=== PATIENT | female | born 1990 | race Caucasian/White ===

== ENCOUNTER 2017-08-15 19:11 | Emergency (ER) | payer OTHER ==
[~2017-08-15] VITALS: Ht 172.7 cm; Wt 74.8 kg
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
[2017-08-15] MEDS ORDERED: LORAZEPAM 1 MG TABLET ONE ×2 (20:14→20:20)
[2017-08-15] MEDS ORDERED: OLANZAPINE 5 MG TABLET ONE (20:14)
[2017-08-15 20:30] LABS: APPEARANCE,URINE Slightly Cloudy (CLEAR); BILIRUBIN,URINE MODERATE (NEGATIVE); BLOOD, URINE Large Ery/uL (NEGATIVE); COLOR,URINE Dark (YELLOW); KETONES,URINE 15 (NEGATIVE); LEUKOCYTE ESTERASE ,URINE Negative (NEGATIVE); NITRITE, URINE Negative (NEGATIVE); PROTEIN,URINE 100 mg/dl (NEGATIVE); UGLUCOSE Negative (NEGATIVE)
[2017-08-15] MEDS ORDERED: OLANZAPINE 5 MG TABLET PO ONE (20:30)
[2017-08-15] MEDS ORDERED: LORAZEPAM 1 MG TABLET PO ONE ×2 (20:30)
[2017-08-15 20:46] LABS: BASOPHILS # (AUTO) 0.1 /CMM (0.0-0.2); BASOPHILS % (AUTO) 1.7 % (0.0-2.0); EOSINOPHILS % (AUTO) 0.4 % (0.0-6.0); HEMATOCRIT 38 % (33-45); LYMPHOCYTES # (AUTO) 1.7 /CMM (0.8-4.8); MEAN CORPUSCULAR HEMOGLOBIN 29 PG (26.0-33.0); MEAN CORPUSCULAR HGB CONC 34 g/dl (31.0-36.0); MEAN CORPUSCULAR VOLUME 85 fL (82-100); MONOCYTES # (AUTO) 0.6 /CMM (0.1-1.30); MONOCYTES % (AUTO) 8.7 % (2.0-12.0); NEUTROPHILS # (AUTO) 4.7 /CMM (1.8-8.9); NEUTROPHILS % (AUTO) 65.2 % (43.0-81.0); PLATELET COUNT (AUTO) 437 /CMM (150-450); RDW COEFFICIENT OF VARIATION 12.7 (11.5-15.0); RED BLOOD CELL COUNT(AUTO) 4.47 MIL/uL (4.0-5.2); WHITE BLOOD COUNT (AUTO) 7.1 K/uL (4.3-11.0)
[2017-08-15 20:57] LABS: CALCIUM, SERUM 9.5 mg/dL (8.5-10.1); CARBON DIOXIDE 26 mmol/L (21-32); CHLORIDE 107 mmol/L (98-107); CREATININE 0.9 mg/dL (0.6-1.3); GLUCOSE 77 mg/dL (74-106); POTASSIUM 3.8 mmol/L (3.5-5.1); SODIUM SERUM 142 mmol/L (136-145); UREA NITROGEN, BLOOD 18 mg/dL (7-18)
[2017-08-15 21:02] LABS: ALANINE AMINOTRANSFERASE 45 U/L (12-78); ALKALINE PHOSPHATASE 83 U/L (46-116); ASPARTATE AMINOTRANSFERASE 21 U/L (15-37); BILIRUBIN,TOTAL 0.4 mg/dL (0.2-1.0); TOTAL PROTEIN, SERUM 7.6 g/dL (6.4-8.2)
[2017-08-15 21:09] LABS: ACETAMINOPHEN 0 ug/ml (10-30); ALCOHOL, BLOOD < 3 mg/dL (0-0); SALICYLATE 1.8 mg/dL (2.8-20.0)
--- NOTE | 2017-08-15 21:11 | NUR ---
TALKING TO FAMILY. NAD NOTED.
[2017-08-15 21:25] LABS: BACTERIA,URINE 1+ /HPF (None Seen); SQUAMOUS EPITHELIAL CELL,UR Moderate /HPF (None Seen)
[2017-08-15 21:26] LABS: MUCUS,URINE Few /LPF (None Seen); URINE AMORPHOUS URATE Few /HPF (None Seen)
[2017-08-15] MEDS ORDERED: CEPHALEXIN MONOHYDRATE 500 MG CAPSULE PO ONE ×2 (22:00→22:05)
--- NOTE | 2017-08-15 22:24 | NUR ---
CALLED ART FOR PSYCH EVAL.
--- NOTE | 2017-08-15 22:40 | NUR ---
GIVEN SANDWICH AND JUICE.
[2017-08-15] MEDS ORDERED: TDAP [DIPH/PERTUSSIS/TET] 0.5 ML VIAL IM ONE (23:00)
--- NOTE | 2017-08-15 23:30 | NUR ---
art/manager highway at bedside
--- NOTE | 2017-08-16 00:37 | NUR ---
PER ART/ELECTRONIC [employer] TECHNICAL "PT CAN STAY HERE ALL NIGHT AND WILL BE DISCHARGED IN THE MORNING". DENIES SI/HI OR ANY OTHER ACUTE SX'S.
--- NOTE | 2017-08-16 01:07 | NUR ---
ON CELL PHONE. DENIES ANY SX'S.
--- NOTE | 2017-08-16 02:32 | NUR ---
RESTING WITH EYES CLOSED; NO S/S OF DISTRESS. RESP EVEN AND UNLABORED.
--- NOTE | 2017-08-16 03:59 | NUR ---
REMAINS RESTING WITH NO S/S OF DISTRESS. RESP EVEN AND UNLABORED.
--- NOTE | 2017-08-16 05:10 | NUR ---
Patient is resting comfortably in bed with eyes closed. Easily aroused. VSS
--- NOTE | 2017-08-16 07:26 | NUR ---
Patient discharged to home in stable condition. Written and verbal after care instructions given. Patient verbalizes understanding of instruction. Denies SI/HI. AAox3, ambulates out of ER with steady gait. Provided food tray and called [employer] senior associate for referral.
[2017-08-16 07:28] VITALS: BP 133/80
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
== END 2017-08-16 07:29 | disposition home or self-care (01) ==
LOC: ER 19:13
DX: R45.851 Suicidal ideations (principal); N39.0 Urinary tract infection, site not specified; F20.9 Schizophrenia, unspecified; Z88.8 Allergy status to other drugs, medicaments and biological substances; F17.200 Nicotine dependence, unspecified, uncomplicated
CPT/HCPCS: 36415; 74021; 80048-TC; 80076-TC; 80305; 81000-TC; 84703-TC; 85025-TC; 87086-TC; A4606; G0480; Z7610

== ENCOUNTER 2019-08-11 22:29 | Emergency (ER) | payer MEDICARE, OTHER ==
[~2019-08-11] VITALS: Ht 172.7 cm; Wt 113.9 kg
--- NOTE | 2019-08-11 22:48 | NUR ---
PT LINDA 62 FOUND ON [employer] [address] [employer] [facility] FOR SI AND PLAN "TO RUN INTO TRAFFIC." PLACED IN BED 15. PLACED IN GOWN, BELONINGS PLACED IN LOCKER. AWAITING MD ORDERS.
--- NOTE | 2019-08-11 23:18 | NUR ---
DESIGN VERIFICATION ENGINEER AT BEDSIDE
[2019-08-11 23:25] LABS: BASOPHILS % (AUTO) 0.6 % (0.0-2.0); EOSINOPHILS % (AUTO) 0.6 % (0.0-6.0); HEMATOCRIT 36 % (33-45); LYMPHOCYTES # (AUTO) 2.3 /CMM (0.8-4.8); LYMPHOCYTES % (AUTO) 30.6 % (20.0-44.0); MEAN CORPUSCULAR HGB CONC 33 g/dl (31.0-36.0); MEAN CORPUSCULAR VOLUME 90 fL (82-100); MONOCYTES # (AUTO) 0.6 /CMM (0.1-1.30); MONOCYTES % (AUTO) 8.8 % (2.0-12.0); NEUTROPHILS # (AUTO) 4.4 /CMM (1.8-8.9); NEUTROPHILS % (AUTO) 59.4 % (43.0-81.0); PLATELET COUNT (AUTO) 323 /CMM (150-450); RED BLOOD CELL COUNT(AUTO) 4.03 MIL/uL (4.0-5.2); WHITE BLOOD COUNT (AUTO) 7.4 K/uL (4.3-11.0)
[2019-08-11 23:34] LABS: CALCIUM, SERUM 8.9 mg/dL (8.5-10.1); CARBON DIOXIDE 31 mmol/L (21-32); CHLORIDE 106 mmol/L (98-107); CREATININE 0.8 mg/dL (0.6-1.3); GLUCOSE 91 mg/dL (74-106); POTASSIUM 3.8 mmol/L (3.5-5.1); SODIUM SERUM 144 mmol/L (136-145); UREA NITROGEN, BLOOD 15 mg/dL (7-18)
[2019-08-11 23:46] LABS: ALANINE AMINOTRANSFERASE 63 U/L (12-78); ALBUMIN 3.2 g/dL (3.4-5.0); ALCOHOL, BLOOD < 3 mg/dL (0-0); ALKALINE PHOSPHATASE 105 U/L (46-116); ASPARTATE AMINOTRANSFERASE 23 U/L (15-37); BILIRUBIN,TOTAL 0.1 mg/dL (0.2-1.0); TOTAL PROTEIN, SERUM 6.7 g/dL (6.4-8.2)
[2019-08-11 23:47] LABS: ACETAMINOPHEN 0 ug/ml (10-30); SALICYLATE 1.4 mg/dL (2.8-20.0)
--- NOTE | 2019-08-11 23:48 | NUR ---
URINE COLLECTED AND SENT TO LAB
[2019-08-11 23:55] LABS: APPEARANCE,URINE Clear (CLEAR); BILIRUBIN,URINE Negative (NEGATIVE); BLOOD, URINE Negative Ery/uL (NEGATIVE); COLOR,URINE Yellow (YELLOW); KETONES,URINE Negative (NEGATIVE); LEUKOCYTE ESTERASE ,URINE Negative (NEGATIVE); NITRITE, URINE Negative (NEGATIVE); PH,URINE 6.5 (5.0-8.0); PROTEIN,URINE Negative (NEGATIVE); UGLUCOSE Negative (NEGATIVE); UROBILINOGEN,URINE 0.2 EU/dL (0.2)
--- NOTE | 2019-08-12 00:44 | NUR ---
Patient is resting comfortably in bed. Easily aroused. VSS.
--- NOTE | 2019-08-12 04:54 | NUR ---
PT ACCEPTED TO [facility] BY DR STRONG. # FOR REPORT [phone].
--- NOTE | 2019-08-12 06:23 | NUR ---
[facility] ETA 0700
[2019-08-12 06:32] VITALS: BP 99/61
--- NOTE | 2019-08-12 07:15 | NUR ---
[facility] AT BEDSIDE FOR TRANSPORT TO [facility].
== END 2019-08-12 07:18 | disposition home or self-care (01) ==
LOC: ER 22:30
DX: R45.851 Suicidal ideations (principal); F19.10 Other psychoactive substance abuse, uncomplicated; R07.81 Pleurodynia; F31.9 Bipolar disorder, unspecified; F10.10 Alcohol abuse, uncomplicated; F12.10 Cannabis abuse, uncomplicated; F17.200 Nicotine dependence, unspecified, uncomplicated; Y90.0 Blood alcohol level of less than 20 mg/100 ml; Z88.9 Allergy status to unspecified drugs, medicaments and biological substances; Z88.8 Allergy status to other drugs, medicaments and biological substances
CPT/HCPCS: 36415; 71100; 80048; 80076; 80305; 80307; 80329; 81001; 84703; 85025; 99284; G0480; 81000-TC

== ENCOUNTER 2020-01-25 20:58 | Emergency (ER) | payer MEDICARE, OTHER ==
[~2020-01-25] VITALS: Ht 172.7 cm; Wt 85.7 kg
--- NOTE | 2020-01-25 20:59 | NUR ---
Chika boswell in ED - 01/25/20 at 2113 by ROSA ATTEMPTED TO TRIAGE PATIENT, PATIENT STATES HE IS STEPPING OUTSIDE.
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
[2020-01-25 21:29] LABS: BASOPHILS % (AUTO) 0.5 % (0.0-2.0); EOSINOPHILS % (AUTO) 0.3 % (0.0-6.0); HEMATOCRIT 38 % (33-45); LYMPHOCYTES # (AUTO) 1.8 /CMM (0.8-4.8); LYMPHOCYTES % (AUTO) 20.5 % (20.0-44.0); MEAN CORPUSCULAR HGB CONC 34 g/dl (31.0-36.0); MEAN CORPUSCULAR VOLUME 88 fL (82-100); MONOCYTES # (AUTO) 0.8 /CMM (0.1-1.30); MONOCYTES % (AUTO) 9.1 % (2.0-12.0); NEUTROPHILS # (AUTO) 6.1 /CMM (1.8-8.9); NEUTROPHILS % (AUTO) 69.6 % (43.0-81.0); PLATELET COUNT (AUTO) 301 /CMM (150-450); WHITE BLOOD COUNT (AUTO) 8.7 K/uL (4.3-11.0)
--- NOTE | 2020-01-25 21:37 | NUR ---
BLOOD DRAWN AND SENT WITH MOLTEN IRON POURER.
--- NOTE | 2020-01-25 21:38 | NUR ---
BROUGHT TO CT
[2020-01-25 21:41] LABS: CALCIUM, SERUM 9.5 mg/dL (8.5-10.1); CARBON DIOXIDE 28 mmol/L (21-32); CHLORIDE 102 mmol/L (98-107); CREATININE 0.9 mg/dL (0.6-1.3); GLUCOSE 112 mg/dL (74-106); POTASSIUM 3.8 mmol/L (3.5-5.1); SODIUM SERUM 137 mmol/L (136-145); UREA NITROGEN, BLOOD 14 mg/dL (7-18)
--- NOTE | 2020-01-25 21:43 | NUR ---
PT RETURNED FROM CT
--- NOTE | 2020-01-25 21:44 | NUR ---
PT HAD [address] VOM[address]ING WHILE IN [address] MD LOONEY
[2020-01-25 21:47] LABS: ALANINE AMINOTRANSFERASE 141 U/L (12-78); ALCOHOL, BLOOD < 3 mg/dL (0-0); ALKALINE PHOSPHATASE 112 U/L (46-116); ASPARTATE AMINOTRANSFERASE 56 U/L (15-37); BILIRUBIN,DIRECT 0.1 mg/dL (0.0-0.2); BILIRUBIN,TOTAL 0.3 mg/dL (0.2-1.0); TOTAL PROTEIN, SERUM 7.2 g/dL (6.4-8.2)
[2020-01-25] MEDS ORDERED: ONDANSETRON 4 MG TAB.RAPDIS ONE (21:48)
--- NOTE | 2020-01-25 21:51 | NUR ---
PT AMBULATED TO THE NURSING STATION AND STATED "I AM PERFECTLY FINE AND I WANT TO LEAVE NOW"
--- NOTE | 2020-01-25 21:53 | NUR ---
Patient does not wish to proceed with medical care recommended by Dr. Suazo. Patient given information related to possible complications, up to and including , which could occur as a result of leaving the hospital at this time. Patient verbalizes understanding of risks involved due to leaving against medical advice. Patient has signed AMA form.
[2020-01-25 21:54] VITALS: BP 121/73
[2020-01-25] MEDS ORDERED: ONDANSETRON 4 MG TAB.RAPDIS SL ONE (22:00)
== END 2020-01-25 21:55 | disposition home or self-care (01) ==
LOC: ER 21:00
DX: S09.8XXA Other specified injuries of head, initial encounter (principal); F31.9 Bipolar disorder, unspecified; F29 Unspecified psychosis not due to a substance or known physiological condition; F20.9 Schizophrenia, unspecified; F41.9 Anxiety disorder, unspecified; F42.9 Obsessive-compulsive disorder, unspecified; Z88.8 Allergy status to other drugs, medicaments and biological substances; W18.09XA Striking against other object with subsequent fall, initial encounter; Y93.89 Activity, other specified; Y92.89 Other specified places as the place of occurrence of the external cause; Y99.8 Other external cause status
CPT/HCPCS: 36415; 70450; 80048; 80076; 80305; 80307; 84703; 85025; 99284; Q0162; G0480

== ENCOUNTER 2021-02-02 22:09 | Emergency (ER) | payer MEDICARE, OTHER ==
[~2021-02-02] VITALS: Ht 180.3 cm; Wt 86.2 kg
[2021-02-02 22:11] VITALS: BP 124/88
[2021-02-02] MEDS ORDERED: ALBU6.7H9 INH (22:21)
== END 2021-02-02 22:25 | disposition home or self-care (01) ==
LOC: ER 22:12
DX: R06.02 Shortness of breath (principal); Z76.0 Encounter for issue of repeat prescription; J45.909 Unspecified asthma, uncomplicated; E11.9 Type 2 diabetes mellitus without complications; F32.9 Major depressive disorder, single episode, unspecified; F41.9 Anxiety disorder, unspecified; F20.9 Schizophrenia, unspecified; Z88.8 Allergy status to other drugs, medicaments and biological substances; Z79.899 Other long term (current) drug therapy

== ENCOUNTER 2022-06-29 05:25 | Emergency (ER) | payer MEDICARE, OTHER ==
[~2022-06-29] VITALS: Ht 175.3 cm; Wt 89.8 kg
[~2022-06-29 05:25] MED LIST: ALBU6.7H9 INH
[2022-06-29] MEDS ORDERED: FERR325T23 PO (07:03)
[2022-06-29] MEDS ORDERED: RISP2TAB5 PO (07:03)
[2022-06-29] MEDS ORDERED: LURA80TA PO (07:03)
[2022-06-29] MEDS ORDERED: SERT100T PO (07:03)
[2022-06-29] MEDS ORDERED: OXCA600T5 PO (07:09)
--- NOTE | 2022-06-29 07:12 | NUR ---
Patient discharged to home in stable condition. Written and verbal after care instructions given. Patient verbalizes understanding of instruction. Pt ambulatory with a steady gait
[2022-06-29 07:14] VITALS: BP 107/85
== END 2022-06-29 07:25 | disposition home or self-care (01) ==
LOC: ER 05:28
DX: Z76.0 Encounter for issue of repeat prescription (principal); J45.909 Unspecified asthma, uncomplicated; E11.9 Type 2 diabetes mellitus without complications; F32.A Depression, unspecified; F20.9 Schizophrenia, unspecified; F41.9 Anxiety disorder, unspecified; F17.200 Nicotine dependence, unspecified, uncomplicated; Z88.8 Allergy status to other drugs, medicaments and biological substances; Z79.899 Other long term (current) drug therapy